=== PATIENT | male | born 1940 | race Caucasian/White ===

== ENCOUNTER 2023-06-03 08:10 | Observation (INO) | payer MEDICARE ==
[2023-06-03] VITALS (9 sets, daily range): BP systolic 125–145; BP diastolic 57–92; PULSE 54–63; RESP 18–20; O2SAT 97
[~2023-06-03] VITALS: Ht 177.8 cm; Wt 67.6 kg
[2023-06-03] MEDS ORDERED: METOCLOPRAMIDE 10 MG/2 ML VIAL IVP ONE (09:00)
[2023-06-03] MEDS ORDERED: LACTATED RINGERS 1000ML IV SCH (09:00)
[2023-06-03] MEDS ORDERED: FAMOTIDINE 20MG VIAL IV ONE (09:00)
[2023-06-03 09:02] LABS: BASOPHILS # (AUTO) 0.03 K/uL (0.00-0.20); BASOPHILS % (AUTO) 0.7 % (0.0-5.0); EOSINOPHILS # (AUTO) 0.23 K/uL (0.00-0.70); EOSINOPHILS % (AUTO) 5.4 % (0.0-8.0); HEMATOCRIT 39.9 % (42-54); IMMATURE GRANULOCYTE ABSOLUTE 0.01 K/uL (0-1); LYMPHOCYTES # (AUTO) 0.8 K/uL (1.0-4.8); LYMPHOCYTES % (AUTO) 18.9 % (21.0-51.0); MEAN CORPUSCULAR HEMOGLOBIN 29.5 pg (27.0-33.0); MEAN CORPUSCULAR HGB CONC 33.1 g/dL (32.0-36.0); MEAN CORPUSCULAR VOLUME 89.3 fL (79-99); MONOCYTES # (AUTO) 0.5 K/uL (0.1-1.0); NEUTROPHILS # (AUTO) 2.7 K/uL (1.8-7.7); NEUTROPHILS % (AUTO) 63.8 % (40.0-77.0); PLATELET COUNT (AUTO) 184 K/uL (130-400); RED BLOOD CELL COUNT(AUTO) 4.47 MIL/uL (4.50-6.20); RED CELL DISTRIBUTION WIDTH 13.1 % (11.0-15.5); WHITE BLOOD COUNT (AUTO) 4.3 K/uL (4.8-10.8)
[2023-06-03] MEDS ORDERED: MIDO5TAB4 PO (09:14)
[2023-06-03] MEDS ORDERED: DOXA4TAB3 PO (09:14)
[2023-06-03 10:29] LABS: INR < 0.93 (0.85-1.15); PROTHROMBIN TIME 10.5 SEC (9.6-11.6)
[2023-06-03 10:30] LABS: PARTIAL THROMBOPLASTIN TIME 27.7 SEC (26.3-35.5)
[2023-06-03] MEDS ORDERED: IOHEXOL-350 50ML VIAL IV ONE (12:56)
[2023-06-03] MEDS ORDERED: LIDOCAINE HCL 400MG/20ML VIAL ONE (13:12)
== END 2023-06-03 19:00 | disposition home or self-care (01) ==
LOC: EDH 08:10 → EDHIP 08:58 → 3DH 14:10
PROVIDERS: ADMIT Hospitalist; ATTEND Hospitalist
DX: K94.23 Gastrostomy malfunction (principal); I10 Essential (primary) hypertension; N40.0 Benign prostatic hyperplasia without lower urinary tract symptoms; J38.00 Paralysis of vocal cords and larynx, unspecified; N41.9 Inflammatory disease of prostate, unspecified; Z46.59 Encounter for fitting and adjustment of other gastrointestinal appliance and device; Z85.01 Personal history of malignant neoplasm of esophagus
CPT/HCPCS: 49451; 96374; 96375; 99284; 80048; 85025; 85610; 85730; 36415; G0378 ×10; C1769 ×2; J3490 ×2; J2765; J1644; Q9967